=== PATIENT | male | born 1935 | race Asian ===

== ENCOUNTER 2017-06-30 08:55 | Day surgery (SDC) | payer MEDICARE, OTHER ==
[2017-06-30] MEDS: BUPIVACAINE 0.25%/EPI (SDV) 30 ML INJ INJ
[2017-06-30] MEDS: POLYMYXIN/BACITRACIN 1L IRRIG IRR
[2017-06-30] MEDS: SODIUM CHLORIDE 0.9% 1L IRRIG IRR
[~2017-06-30 08:55] MED LIST: ACETAMINOPHEN 1000 MG/100 ML IVPB
[2017-06-30] MEDS ORDERED: LIDOCAINE 1% (MPF) 30 ML INJ (10:15)
[2017-06-30] MEDS ORDERED: BUPIVACAINE 0.25%/EPI (SDV) 30 ML INJ (10:16)
[2017-06-30] MEDS ORDERED: LIDOCAINE 100 MG SYRINGE (11:02)
[2017-06-30] MEDS ORDERED: PROPOFOL 20 ML (11:02)
[2017-06-30] MEDS ORDERED: ROCURONIUM 50 MG INJ (11:02)
[2017-06-30] MEDS ORDERED: FENTAnyl 50 MCG/ML VIAL (11:03)
[2017-06-30] MEDS ORDERED: MEPERIDINE 25 MG INJ IV (11:30)
[2017-06-30] MEDS ORDERED: FENTAnyl 50 MCG/ML VIAL IV ×2 (11:30)
[2017-06-30] MEDS ORDERED: OXYCODONE/ACETAMINOPHEN (5/325) TAB PO (11:30)
[2017-06-30] MEDS ORDERED: hydrALAzine 20 MG INJ IV (11:30)
[2017-06-30] MEDS ORDERED: ONDANSETRON 4 MG INJ IV (11:30)
[2017-06-30] MEDS ORDERED: LABETALOL HCL 20MG INJ IV (11:30)
[2017-06-30] MEDS ORDERED: HYDROmorphONE (0.2 MG/ML) 10ML SYG IV (11:30)
[2017-06-30] MEDS ORDERED: FAMOTIDINE 20 MG INJ (11:42)
[2017-06-30] MEDS ORDERED: CEFAZOLIN 1 GM INJ (11:50)
[2017-06-30] MEDS ORDERED: ONDANSETRON 4 MG INJ (12:04)
[2017-06-30] MEDS ORDERED: SUGAMMADEX SODIUM 200 MG/2 ML VIAL IV (12:04)
[2017-06-30] MEDS ORDERED: DEXAMETHASONE 4 MG/ML 1 ML INJ (12:04)
[2017-06-30] MEDS ORDERED: EPHEDrine SULFATE 50 MG/5 ML SYG (12:30)
[2017-06-30] MEDS ORDERED: GLYCOPYRROLATE 0.4 MG INJ (12:35)
[2017-06-30] MEDS ORDERED: KETOROLAC 30 MG INJ (13:04)
== END 2017-06-30 15:47 | disposition home or self-care (01) ==
LOC: SDS 08:55
DX: K40.90 Unilateral inguinal hernia, without obstruction or gangrene, not specified as recurrent (principal); K43.9 Ventral hernia without obstruction or gangrene; I10 Essential (primary) hypertension; K21.9 Gastro-esophageal reflux disease without esophagitis
CPT/HCPCS: 49650; 93005